=== PATIENT | male | born 1995 | race Caucasian/White ===

== ENCOUNTER 2018-12-14 10:51 | Emergency (ER) | payer OTHER, SELFPAY ==
[2018-12-14 11:00] VITALS: BP 147/79; PULSE 69; RESP 17; TEMP 36.8; O2SAT 99
--- NOTE | 2018-12-14 15:16 | ED_ITS ---
HPI - Abdominal Pain General Chief Complaint: Skin/Abscess/Foreign Body Stated Complaint: APPENDIX SURGERY INCISION BLEEDING Time Seen by Provider: 12/14/18 10:58 Source: patient and family Mode of arrival: ambulatory Limitations: no limitations History of Present Illness HPI narrative: 23-year-old male, nonsmoker with recent laparoscopic appendectomy at the [facility] in [place] presents with chief complaint of bleeding from incision site. The patient noted a small amount of blood at the umbilical incision in the absence of any pain, nausea, vomiting, fever or bowel change. He is passing gas without difficulty. He contacted the surgical office in [place] whom instructed him to proceed to the closest emergency department MD complaint: other Onset (ago): hour(s) Pain Consistency: intermittent and now resolved Exacerbating factors: nothing Context: recent surgery/procedure Associated symptoms: denies other symptoms Related Data Home Medications Medication Instructions Recorded Confirmed acetaminophen [Tylenol] 650 mg PO Q6H PRN 12/14/18 12/14/18 ibuprofen 600 mg PO TID PRN 12/14/18 12/14/18 oxycodone 5 mg PO Q4-6H PRN 12/14/18 12/14/18 Allergies Allergy/AdvReac Type Severity Reaction Status Date / Time No Known Drug Allergies Allergy Verified 12/14/18 11:04 Review of Systems Constitutional Denies chills, Denies fever(s), Denies lethargy and Denies weakness Eyes Denies change in vision, Denies eye discharge, Denies irritation and Denies loss of vision ENT Ears, Nose, Mouth, and Throat: Denies change in voice, Denies neck pain and Denies sore throat Cardiovascular Denies chest pain, Denies irregular heart rhythm, Denies lightheadedness, Denies palpitations, Denies dyspnea, Denies dyspnea on exertion and Denies orthopnea Respiratory Denies cough, Denies dyspnea, Denies dyspnea on exertion and Denies wheezing Gastrointestinal Gastrointestinal: Denies abdominal pain, Denies change in bowel habits, Denies diarrhea, Denies nausea and Denies vomiting Genitourinary Denies hematuria, Denies flank pain, Denies urinary incontinence and Denies urinary urgency Musculoskeletal Denies neck pain Integumentary/Breasts Denies pruritus, Denies erythema, Denies rash and Reports wounds Comments: Neurologic Denies confusion, Denies loss of vision and Denies weakness Psychiatric Denies anxiety, Denies confusion, Denies depression, Denies homicidal ideation and Denies suicidal ideation Endocrine Denies palpitations Hematologic/Lymphatic Denies easy bruising Allergic/Immunologic Denies wheezing PFSH Surgical History Hx of appendectomy (Acute) Social History Smoking Status: Never smoker Exam Narrative Exam Narrative: GEN: AOx3 and in mild distress EYES: Pupils are equal, round, and reactive to light and accommodation. Extraoccular muscles are intact bilaterally. There is no subconjunctival hemorrhage or exudate. CHEST: Lungs are clear to auscultation bilaterally and free of wheezes, rales, or rhonchi. Heart rate is regular rhythm, there are no murmurs, clicks, rubs, or gallops. There is no chest wall tenderness. ABD: Abdomen is soft and minimally tender. There is minimal amount of blood in skin adhesive at umbilical laparoscopic site. No active bleeding noted. No palpable hematoma. No fluid to culture. No redness or erythema. There is no guarding or rebound. Bowel sounds are normal in all 4 quadrants. There is no mass or organomegaly. EXT: Full painless ROM of all extremities with no loss of sensation or strength. SKIN: Warm, pink, and dry. No erythema or rash Initial Vital Signs Initial Vital Signs: Vital Signs Temperature 98.2 F 12/14/18 11:00 Pulse Rate 69 12/14/18 11:00 Respiratory Rate 17 12/14/18 11:00 Blood Pressure 147/79 H 12/14/18 11:00 Pulse Oximetry 99 12/14/18 11:00 Course Consultations Consultation #1: Patient provided contact information for his surgeon in [place]. I called that number and they were unable to find Dr. Leyva and state he had no pager or other method of contact. At that point I contacted our on-call surgeon to discuss recommendations and plan follow-up. His recommendation based on my description and patient's HPI is to closely follow up with his surgeon Vital Signs - 8 hr 12/14/18 11:00 Temperature 98.2 F Pulse Rate 69 Respiratory Rate 17 Blood Pressure 147/79 H Pulse Oximetry 99 Discharge Plan Departure Patient Disposition: Home Clinical Impression: Hemorrhage from wound, Post surgical complication Discharge Date/Time: 12/14/18 11:52 Interventions: ED Discharge Assessment Last Done: 12/14/18 11:50 Instructions: DI for Post-Surgical Bleeding Activity Restrictions/Additional Instructions: *You have been diagnosed with [ mild postsurgical bleeding ] *What to do: * continue to take medications as directed *Follow up with your surgeon in 2-3 days, call for an appointment. Let them know you were seen in the Emergency Department and that we ask that you be seen in follow up *Return to ER if you should have any new, worsening or concerning symptoms , such as [increased bleeding, pain, fever over 101 F, other bothersome symptoms ] Prescriptions: No Action ibuprofen 600 mg Tablet 600 mg PO TID PRN (Reason: Pain (Scale Score 1-3)) RF: 0 acetaminophen [Tylenol] 325 mg Tablet 650 mg PO Q6H PRN (Reason: Pain (Scale Score 1-3)) RF: 0 oxycodone 5 mg Capsule 5 mg PO Q4-6H PRN (Reason: Pain (Scale Score 1-3)) RF: 0
== END 2018-12-14 11:52 | disposition home or self-care (01) ==
PROVIDERS: Emergency Provider Emergency Medicine
DX: T81.31XA Disruption of external operation (surgical) wound, not elsewhere classified, initial encounter (principal)
CPT/HCPCS: 99282